=== PATIENT | female | born 1990 ===

== ENCOUNTER 2020-12-03 14:30 | Inpatient (IN) | payer OTHER ==
[~2020-12-03] VITALS: Ht 162.6 cm; Wt 64.4 kg
[2020-12-14] MEDS ORDERED: PRENATAL CAPLE1 EAC1 PO (13:03)
== END 2020-12-17 13:09 | disposition home or self-care (01) | DRG 807 ==
LOC: LDR 12-14 06:33 → SURG-SUITE 12-15 14:40 → OB/GYN 12-16 14:30 → SURG-SUITE 12-17 13:09
PROVIDERS: ADMIT Obstetrics & Gynecology; ATTEND Obstetrics & Gynecology
PROC: 10E0XZZ Delivery of Products of Conception, External Approach (ICD-10-PCS; principal; 2020-12-15)
PROC: 10907ZC Drainage of Amniotic Fluid, Therapeutic from Products of Conception, Via Natural or Artificial Opening (ICD-10-PCS; 2020-12-15)
PROC: 4A1HXFZ Monitoring of Products of Conception, Cardiac Rhythm, External Approach (ICD-10-PCS; 2020-12-15)
DX: O80 Encounter for full-term uncomplicated delivery (principal); Z37.0 Single live birth; Z3A.39 39 weeks gestation of pregnancy; Z20.822 Contact with and (suspected) exposure to COVID-19

== ENCOUNTER 2020-12-13 17:47 | Outpatient (CLI) | payer OTHER ==
[2020-12-14] MEDS ORDERED: PRENATAL CAPLE1 EAC1 PO (13:03)
== END 2020-12-14 09:44 | disposition still patient (30) ==
LOC: OBS/DEL 17:47
PROVIDERS: ATTEND Obstetrics & Gynecology
DX: O41.8X30 Other specified disorders of amniotic fluid and membranes, third trimester, not applicable or unspecified (principal); Z3A.39 39 weeks gestation of pregnancy